=== PATIENT | male | born 2000 | race Caucasian/White ===

== ENCOUNTER 2019-09-16 21:45 | Emergency (ER) | payer SELFPAY ==
[2019-09-16 21:57] VITALS: BP 141/84
[2019-09-16] MEDS ORDERED: Fluorescein Sodium TOPICAL* 1 MG TEST STRIP OPHTHALMIC ONE (22:00)
--- NOTE | 2019-09-16 22:06 | UC ---
Eye Complaint HPI - HPI Summary HPI Summary: Playing football and was poked in the right eye. Redness and irritation. No change in vision. - History of Current Complaint Chief Complaint: UCEye Stated Complaint: RT EYE COMPLAINT Time Seen by Provider: 09/16/19 21:59 Hx Obtained From: Patient Onset/Duration: Sudden Onset, Lasting Hours - 5, Still Present Timing: Constant Severity Initially: Severe Severity Currently: Moderate Pain Intensity: 7 Location of Injury: Conjunctiva Character: Sharp Aggravating Factor(s): Blinking Associated Signs And Symptoms: Negative: Vision Impairment Right, Vision Impairment Left Related History: Trauma - Risk Factors Globe Rupture Risk Factors: Recent Trauma - Allergies/Home Medications Allergies/Adverse Reactions: Allergies Allergy/AdvReac Type Severity Reaction Status Date / Time No Known Allergies Allergy Verified 09/16/19 21:57 Home Medications: Home Medications NK [No Home Medications Reported] 09/16/19 [History Confirmed 09/16/19] PMH/Surg Hx/FS Hx/Imm Hx Previously Healthy: Yes - Surgical History Surgical History: Yes Surgery Procedure, Year, and Place: right knee surgery - Family History Known Family History: Positive: Hypertension, Diabetes - Social History Occupation: Student Lives: Dormitory/Roommates Alcohol Use: Weekly Substance Use Type: None Smoking Status (MU): Never Smoked Tobacco Review of Systems All Other Systems Reviewed And Are Negative: Yes Eyes: Positive: Eye Redness Physical Exam Triage Information Reviewed: Yes Appearance: Well-Appearing, No Pain Distress, Well-Nourished Vital Signs: Initial Vital Signs Temp 98.4 F 09/16/19 21:54 Pulse 88 09/16/19 21:54 Resp 15 09/16/19 21:54 BP 141/84 09/16/19 21:54 Pulse Ox 98 09/16/19 21:54 Vital Signs Reviewed: Yes Eyes: Positive: Conjunctiva Inflamed - OD, Other: - fluorescein stain negative right eye ENT: Positive: Pharynx normal, TMs normal Neck exam: Normal Respiratory Exam: Normal Cardiovascular Exam: Normal Musculoskeletal Exam: Normal Neurological Exam: Normal Psychological Exam: Normal Eye Complaint Course/Dx - Differential Dx/Diagnosis Differential Diagnosis/HQI/PQRI: Conjunctivitis, Corneal Abrasion, Foreign Body , Keratitis Provider Diagnosis: Eyeball contusion Discharge ED - Sign-Out/Discharge Documenting (check all that apply): Patient Departure All imaging exams completed and their final reports reviewed: No Studies - Discharge Plan Condition: Stable Disposition: HOME Patient Education Materials: Contusion in Adults (ED) Referrals: No Primary Care Phys,NOPCP [Primary Care Provider] - Additional Instructions: ice the eye for pain relief. - Billing Disposition and Condition Condition: STABLE Disposition: Home
== END 2019-09-16 22:18 | disposition home or self-care (01) ==
LOC: UCCORT 21:45
DX: S05.11XA Contusion of eyeball and orbital tissues, right eye, initial encounter (principal); W50.0XXA Accidental hit or strike by another person, initial encounter; Y93.61 Activity, american tackle football; Y92.9 Unspecified place or not applicable
CPT/HCPCS: 99201; A9270-GY; G0463